=== PATIENT | male | born 1990 | race African-American/Black ===

== ENCOUNTER 2023-07-04 19:26 | Emergency (ER) | payer OTHER ==
[~2023-07-04] VITALS: Ht 177.8 cm; Wt 75.0 kg
[2023-07-04 19:34] VITALS: O2SAT 99
[2023-07-04 20:37] LABS: BASOPHILS % 0.5 % (0.0-2.0); EOSINOPHILS % 0.2 % (0.0-5.0); HEMATOCRIT. 45.4 % (42.0-52.0); LYMPHOCYTES % 18.4 % (20.0-50.0); MEAN CORPUSCULAR HEMOGLOBIN 28.1 pg (28.0-32.0); MEAN CORPUSCULAR VOLUME 85.1 fL (80.0-94.0); MEAN PLATELET VOLUME 7.5 fl (7.4-10.4); MONOCYTES % 10.1 % (2.0-8.0); NEUTROPHILS % 70.8 % (40.0-76.0); PLATELET 268 x1000/uL (130-400); RED BLOOD CELL COUNT 5.34 mill/uL (4.7-6.1); RED CELL DISTRIBUTION WIDTH 14.5 % (11.6-14.6); WHITE BLOOD COUNT 10.9 x1000/uL (4.5-11.0)
[2023-07-04 20:58] LABS: AMMONIA < 17 uMol/L (<32)
[2023-07-04 21:01] LABS: ACETAMINOPHEN < 2 ug/mL (10-30); ALANINE AMINOTRANSFERASE 12 IU/L (10-49); ALBUMIN 4.6 g/dL (3.2-4.8); ASPARTATE AMINOTRANSFERASE 30 IU/L (<34); BILIRUBIN TOTAL 0.6 mg/dL (0.1-1.0); CALCIUM 9.2 mg/dL (8.7-10.4); CARBON DIOXIDE 26 mEq/L (21-32); CHLORIDE 101 mEq/L (98-107); CREATININE 0.8 mg/dL (0.6-1.3); GLUCOSE 84 mg/dL (70-105); POTASSIUM 4.1 mEq/L (3.5-5.1); PROTEIN TOTAL 7.4 g/dL (6.0-8.3); SODIUM 134 mEq/L (136-145); THYROID STIMULATING HORMONE 0.89 uIU/mL (0.55-4.78); UREA NITROGEN BLOOD 6 mg/dL (9-23)
[2023-07-04 21:02] LABS: ETHANOL BLOOD < 10 mg/dL (<10)
[2023-07-04] MEDS ORDERED: DIPHENHYDRAMINE 50MG CAPSULE PO ONE (23:45)
[2023-07-04 23:58] LABS: CLARITY URINE CLEAR (CLEAR); COLOR URINE YELLOW (YELLOW); GLUCOSE URINE NEGATIVE (NEGATIVE); KETONES URINE 3+ (NEGATIVE); LEUKOCYTE ESTERASE URINE NEGATIVE (NEGATIVE); NITRITE URINE NEGATIVE (NEGATIVE); OCCULT BLOOD URINE NEGATIVE (NEGATIVE); PH URINE 5.5 (4.5-8.0); PROTEIN URINE NEGATIVE (NEGATIVE); SPECIFIC GRAVITY URINE 1.012 (1.005-1.030); UROBILINOGEN URINE 0.2 E.U./dL (0.2-1.0)
[2023-07-05] MEDS: DIPHENHYDRAMINE 25MG CAPSULE PO NR (00:05)
[2023-07-05 00:08] LABS: *AMPHETAMINES SCREEN URINE NEGATIVE (NEGATIVE); *BARBITURATES SCREEN URINE NEGATIVE (NEGATIVE); *BENZODIAZEPINES SCREEN URINE NEGATIVE (NEGATIVE); *COCAINE SCREEN URINE NEGATIVE (NEGATIVE); CANNABINOID URINE SCREEN NEGATIVE (NEGATIVE); ECSTASY MDMA SCREEN URINE NEGATIVE (NEGATIVE); METHADONE URINE SCREEN Neg (NEGATIVE); OPIATES URINE SCREEN NEGATIVE (NEGATIVE); PHENCYCLIDINE URINE SCREEN NEGATIVE (NEGATIVE)
[2023-07-05] MEDS: OLANZAPINE 5MG TABLET ODT PO SCH (10:59)
[2023-07-05 19:00] VITALS: BP 104/71; PULSE 98; RESP 18; TEMP 98.6
== END 2023-07-05 20:26 | disposition home or self-care (01) ==
LOC: ER 19:26
DX: R46.2 Strange and inexplicable behavior (principal); R51.9 Headache, unspecified; Z20.822 Contact with and (suspected) exposure to COVID-19
CPT/HCPCS: 80053; 80305; 81003; 80307; 80329; 80320; 82140; 84443; 85025; 36415; 70450; 99285; 87426; Q0163; G0480

== ENCOUNTER 2023-07-25 22:11 | Emergency (ER) | payer MEDICAID, OTHER ==
[~2023-07-25] VITALS: Ht 188 cm; Wt 79.0 kg
[2023-07-25 22:15] VITALS: O2SAT 100
[2023-07-25] MEDS: IBUPROFEN 400MG TABLET PO ONE (23:45)
[2023-07-26 00:15] VITALS: BP 132/65; PULSE 76; RESP 17; TEMP 97.9
== END 2023-07-26 00:17 | disposition home or self-care (01) ==
LOC: ER 22:11
DX: R51.9 Headache, unspecified (principal); D64.9 Anemia, unspecified; Z87.891 Personal history of nicotine dependence
CPT/HCPCS: 99283

== ENCOUNTER 2023-10-03 14:15 | Emergency (ER) | payer MEDICAID, OTHER ==
[~2023-10-03] VITALS: Ht 172.7 cm; Wt 70.0 kg
[2023-10-03 14:23] VITALS: BP 134/76; PULSE 80; RESP 18; TEMP 98.4; O2SAT 99
[2023-10-03] MEDS ORDERED: DEXAMETHASONE 1MG TABLET PO ONE (15:30)
[2023-10-03] MEDS ORDERED: DIPHENHYDRAMINE 50MG CAPSULE PO ONE (15:30)
[2023-10-03] MEDS: DEXAMETHASONE 10 MG/ML VIAL PO NR (15:50)
[2023-10-03] MEDS: DIPHENHYDRAMINE 25MG CAPSULE PO NR (15:50)
== END 2023-10-03 15:53 | disposition home or self-care (01) ==
LOC: ER 14:15
DX: T78.49XA Other allergy, initial encounter (principal); D64.9 Anemia, unspecified; X58.XXXA Exposure to other specified factors, initial encounter
CPT/HCPCS: 99283; Q0163; J1100; J8540